=== PATIENT | female | born 1960 | race Caucasian/White ===

== ENCOUNTER → 2016-12-01 | Outpatient (CLI) | payer BC ==
--- NOTE | 2016-12-01 10:30 | Diagnostic Imaging Report ---
Bilateral screening mammogram The current study was also evaluated with a Computer Aided Detection (CAD) system. INDICATION: Screening. No current complaints stated on the questionnaire. COMPARISON: 12/01/15 FINDINGS: The breasts are composed of heterogeneously dense parenchyma which may decrease mammographic sensitivity. There is no mass, architectural distortion or suspicious cluster of calcification. Allowing for technique and positional differences, no suspicious change is seen. IMPRESSION: No significant change. ACR BI-RADS Category 2: Benign findings. Result letter will be mailed to the patient. Note: At least 10% of breast cancer is not imaged by mammography. Dictated by: Dictated on workstation # [id number]
== END ==
LOC: RAD 07:17
PROVIDERS: ATTEND Nurse Practitioner Family
DX: Z12.31 Encounter for screening mammogram for malignant neoplasm of breast (principal)
CPT/HCPCS: 77067

== ENCOUNTER → 2017-03-28 | Outpatient (CLI) | payer BC ==
--- NOTE | 2017-03-29 11:13 | Diagnostic Imaging Report ---
PROCEDURE: MRI left upper extremity without contrast. TECHNIQUE: Multiplanar, multisequence non contrast-enhanced MRI of the left upper extremity was accomplished. INDICATION: Left shoulder adhesive capsulitis. FINDINGS: There is no os acromiale or Hill-Sachs deformity. 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 No inferior osteophytes. There is mild increased signal within the supraspinatus tendon anteriorly along the bursal side compatible with low-grade partial tear. Infraspinatus tendon appears intact. Minimal reactive fluid within the subacromial subdeltoid bursa is seen. The long head biceps tendon appears to be within its groove. The superior segment of the labrum demonstrates a nonspecific slight increased signal on coronal proton density sequence which is nonspecific on this study without intra-articular contrast. The subscapular tendon demonstrates mild increased signal likely related to tendinosis with no significant tear. There is mild reactive bone marrow signal in the posterior lateral aspect of the humeral head near the rotator cuff insertion. There is otherwise no significant bone marrow signal abnormality. The muscle bulk and signal around the shoulder is normal. IMPRESSION: 1. There is a mild bursal side partial tear along the anterior fibers of the supraspinatus tendon. No high-grade or retracted tear. 2. Suggestion of subscapularis tendinosis. Dictated by: Dictated on workstation # [id number]
== END ==
LOC: RAD 16:18
PROVIDERS: ATTEND Orthopaedic Surgery
DX: M75.02 Adhesive capsulitis of left shoulder (principal)
CPT/HCPCS: 73221

== ENCOUNTER → 2017-12-02 | Outpatient (CLI) | payer BC ==
--- NOTE | 2017-12-02 13:27 | Diagnostic Imaging Report ---
INDICATION: Routine screening. Comparison is made with prior study from 12/01/2016 and 12/01/2015. 2-D and 3-D bilateral screening mammography was performed with CAD. The current study was also evaluated with a Computer Aided Detection (CAD) system. FINDINGS: Both breasts remain heterogeneously dense, limiting the sensitivity of mammography. Benign circumscribed nodule in the upper outer right breast is stable. No new mass or malignant-appearing microcalcifications are seen. The axillae are unremarkable. IMPRESSION: No mammographic features suspicious for malignancy are identified. ACR BI-RADS Category 2: Benign findings. Result letter will be mailed to the patient. Note: At least 10% of breast cancer is not imaged by mammography. Dictated by: Dictated on workstation # [id number]
== END ==
LOC: RAD 07:18
PROVIDERS: ATTEND Family Medicine
DX: Z12.31 Encounter for screening mammogram for malignant neoplasm of breast (principal)
CPT/HCPCS: 77067

== ENCOUNTER → 2019-12-06 | Outpatient (CLI) | payer BC ==
--- NOTE | 2019-12-06 11:33 | Diagnostic Imaging Report ---
EXAM: Digital mammogram bilateral screening, COMPARISONS: 12/04/2018, 12/02/2017 and 12/01/2016. TECHNIQUE: The current study was also evaluated with a Computer Aided Detection (CAD) system. There are no current complaints. FINDINGS: The fibroglandular tissue in both breasts is heterogeneously dense. This does limit the sensitivity of this exam. Overall, there does not appear to have been any significant change when compared to the prior study. No primary or secondary sign of malignancy is noted. IMPRESSION: There is no radiographic evidence for malignancy. ACR BI-RADS Category 1: Negative. Result letter will be mailed to the patient. Note: At least 10% of breast cancer is not imaged by mammography. Dictated by: Dictated on workstation # [id number]
== END ==
LOC: RAD 07:24
PROVIDERS: ATTEND Family Medicine
DX: Z12.31 Encounter for screening mammogram for malignant neoplasm of breast (principal)
CPT/HCPCS: 77063; 77067

== ENCOUNTER → 2020-12-08 | Outpatient (CLI) | payer BC ==
--- NOTE | 2020-11-26 06:59 | HISTORY AND PHYSICAL ---
DATE OF SERVICE: COLONOSCOPY HISTORY AND PHYSICAL HISTORY OF PRESENT ILLNESS: The patient is a 59-year-old white female referred by Dr. Irwin for screening colonoscopy. She reports one of the screening colon 10 years ago that she believes was unremarkable. She denies bowel habit change, bright red blood per rectum, melena or abdominal pain. She is not aware of any family history for colon cancer. PAST MEDICAL HISTORY: Pretty unremarkable. She has a history of adhesive capsulitis of the left shoulder causing only minimal discomfort at this time. No history of cardiovascular disease or pulmonary disease. PAST SURGICAL HISTORY: She had D and C following a miscarriage around 25 years ago. Reports no other surgeries. FAMILY HISTORY: Father of lung cancer in his 60s, was a heavy smoker. Mother succumbed of vulvar cancer. I believe she was a smoker as well. No known family history for colon cancer or other GI tract malignancies. 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 No past smoking history and only rare alcohol consumption in small volume. REVIEW OF SYSTEMS: CONSTITUTIONAL: The patient denies change in weight, night sweats, chills or fever. CARDIOVASCULAR: The patient denies chest pain, orthopnea, PND, pedal edema, syncope, presyncope, palpitations or heart racing. PULMONARY: The patient denies cough, wheezing or shortness of breath. GASTROINTESTINAL: As per HPI. PHYSICAL EXAMINATION: GENERAL: Reveals a pleasant white female in no acute distress. VITAL SIGNS: Weight 152 pounds, blood pressure 140/90. HEENT: Unremarkable. CHEST: Clear. CARDIOVASCULAR: Reveals a regular rate and rhythm without murmur, S3 or S4. ABDOMEN: Soft, supple without mass, organomegaly or tenderness. No bruits are noted. Bowel sounds are positive. EXTREMITIES: Reveal no cyanosis, clubbing or edema. ASSESSMENT AND PLAN: The patient is set up for screening colonoscopy, deemed to be of average risk with no known family history for colon cancer. Prep instructions with the Suprep kit were given and questions were answered. Electronic medical record was reviewed. I thank you for the referral of this pleasant lady. Job ID: [id number] DocumentID: [id number] Dictated Date: 11/20/2020 16:31:28 Water Plant Pump Operator Supervisor Date: 11/20/2020 17:39:37 Dictated By: RITU LOPEZ MD
[~2020-12-08] MED LIST: ATOR10TA PO; OMEG-33 PO; SPIR25TA PO; UBID10CA5 PO
--- NOTE | 2020-12-08 10:20 | Diagnostic Imaging Report ---
INDICATION: Routine screening. COMPARISON: 12/06/2019 and 12/04/2018. TECHNIQUE: 2D and 3D bilateral screening mammography was performed with CAD. FINDINGS: Scattered fibroglandular densities are identified bilaterally. An intraparenchymal lymph node in the upper outer right breast is stable. No new mass or malignant appearing microcalcifications are seen. The axillae are unremarkable. IMPRESSION: No mammographic features suspicious for malignancy are identified. ACR BI-RADS Category 2: Benign findings. Result letter will be mailed to the patient. Note: At least 10% of breast cancer is not imaged by mammography. Dictated by: Dictated on workstation # [id number]
== END ==
LOC: RAD 07:30
PROVIDERS: ATTEND Family Medicine
DX: Z12.31 Encounter for screening mammogram for malignant neoplasm of breast (principal)
CPT/HCPCS: 77063; 77067

== ENCOUNTER 2020-12-11 06:41 | Outpatient (CLI) | payer BC ==
[~2020-12-11] VITALS: Ht 157.5 cm; Wt 67.0 kg
[2020-12-11] MEDS ORDERED: UBID10CA5 PO (12:24)
[2020-12-11] MEDS ORDERED: ATOR10TA PO (12:24)
[2020-12-11] MEDS ORDERED: SPIR25TA PO (12:24)
[2020-12-11] MEDS ORDERED: OMEG-33 PO (12:24)
== END 2020-12-11 13:52 | disposition home or self-care (01) ==
LOC: PREOP 06:41
PROVIDERS: ATTEND Internal Medicine
DX: Z01.818 Encounter for other preprocedural examination (principal)

== ENCOUNTER 2020-12-19 07:03 | Day surgery (SDC) | payer BC ==
[~2020-12-19] VITALS: Ht 157.5 cm; Wt 67.0 kg
[2020-12-19] MEDS ORDERED: LACTATED RINGERS 1,000 ML IV ONE (07:08)
[2020-12-19] MEDS ORDERED: LACTATED RINGERS 1,000 ML IV STA (07:11)
[2020-12-19 07:15] VITALS: BP 120/72
[2020-12-19] MEDS ORDERED: LIDOCAINE JELLY 2% 6 ML SYRINGE MM PRN (07:15)
[2020-12-19] MEDS ORDERED: PROPOFOL INJECTION 50 ML IV ONE (07:33)
[2020-12-19] MEDS ORDERED: MIDAZOLAM 2 MG/2 ML (VERSED) VIAL ONE (07:34)
[2020-12-19] MEDS ORDERED: LIDOCAINE PF 2% 5 ML (XYLOCAINE) VIAL ONE (08:01)
--- NOTE | 2020-12-19 08:01 | Pre-Op Note & Conscious Sedat ---
Pre-Operative Progress Note H&P Reviewed The H&P was reviewed, patient examined and no changes noted. Date H&P Reviewed: Dec 19, 2020 Time H&P Reviewed: 07:40 Conscious Sedation Pre-Proced ASA Score 2 For ASA 3 and 4: Consider anesthesia and medical clearance. Also, for patients with a history of failed moderate sedation consider anesthesia. Airway Lungs Heart ASA score ASA 1: a normal healthy patient ASA 2: a patient with a mild systemic disease (mid diabetes, controlled hypertension, obesity ASA 3: a patient with a severe systemic disease that limits activity (angina, COPD, prior Myocardial infarction) ASA 4: a patient with an incapacitating disease that is a constant threat to life (CHF, renal failure) ASA 5: a moribund patient not expected to survive 24 hrs. (ruptured aneurysm) ASA 6: a declared brain- patient whose organs are being harvested. For emergent operations, add the letter E after the classification Mallampati Classification Grade 2 Sedation Plan Analgesia, Amnesia, Plan communicated to team members, Discussed options with patient/fam, Discussed risks with patient/fam The patient is an appropriate candidate to undergo the planned procedure, sedation, and anesthesia. The patient immediately re-assessed prior to indication. RITU LOPEZ MD Dec 19, 2020 08:01
[2020-12-19 08:30] VITALS: BP 122/62
[2020-12-19 08:35] VITALS: BP 107/58
[2020-12-19 08:55] VITALS: BP 108/71
[2020-12-19 09:10] VITALS: BP 108/71
--- NOTE | 2020-12-19 11:04 | Anesthesia-General Post-Op ---
MAC Patient Condition Mental Status/LOC: Same as Preop Cardiovascular: Satisfactory Nausea/Vomiting: Absent Respiratory: Satisfactory Pain: Controlled Complications: Absent Post Op Complications Complications None Follow Up Care/Instructions Patient Instructions None needed. Anesthesiology Discharge Order Discharge Order Patient is doing well, no complaints, stable vital signs, no apparent adverse anesthesia problems. No complications reported per nursing. YANNICK OJEDA CRNA Dec 19, 2020 11:04
--- NOTE | 2020-12-19 13:50 | OPERATIVE REPORT ---
DATE OF SERVICE: COLONOSCOPY SUMMARY INDICATION FOR PROCEDURE Screening. DESCRIPTION OF PROCEDURE: The patient was placed in the left lateral decubitus position. Prior to undergoing colonoscopy, digital rectal evaluation was performed. Anal sphincter tone was normal. Perianal reflexes intact. No abnormalities were noted on digital inspection of anal canal or distal rectal vault. The colonoscope was inserted in the rectum and under direct visualization advanced to cecum. The cecum was identified by identification of ileocecal valve and cecal strap. Photographic documentation was obtained. Careful inspection was made as colonoscope was withdrawn. Quality of prep was good. FINDINGS: No evidence for internal or external hemorrhoids. The rectum was unremarkable. Present in the distal sigmoid colon was a diminutive 2 mm sessile polyp was biopsied and ablated and submitted for histopathology. A similar small to 3 mm polyps were noted in the mid ascending and the hepatic flexure. Both were biopsied and ablated with no subsequent blood loss. The remainder of the colon was unremarkable. No evidence for diverticular disease was noted. ASSESSMENT: Three small sessile polyps were removed via hot forceps located in the distal sigmoid colon, hepatic flexure and mid ascending colon. This was an otherwise normal colonoscopy to the cecum under good prep conditions. We will await histopathology report before making recommendation for future surveillance colonoscopy. I thank you for the referral of this pleasant lady. Job ID: [id number] DocumentID: [id number] Dictated Date: 12/19/2020 09:07:01 Supervisor Dry Cleaning Date: 12/19/2020 13:49:29 Dictated By: RITU LOPEZ MD
--- NOTE | 2020-12-23 09:16 | HISTORY AND PHYSICAL ---
DATE OF SERVICE: 12/19/2020 COLONOSCOPY HISTORY AND PHYSICAL HISTORY OF PRESENT ILLNESS: The patient is a 59-year-old white female referred by Dr. Irwin for screening colonoscopy. She reports one of the screening colon 10 years ago that she believes was unremarkable. She denies bowel habit change, bright red blood per rectum, melena or abdominal pain. She is not aware of any family history for colon cancer. PAST MEDICAL HISTORY: Pretty unremarkable. She has a history of adhesive capsulitis of the left shoulder causing only minimal discomfort at this time. No history of cardiovascular disease or pulmonary disease. PAST SURGICAL HISTORY: She had D and C following a miscarriage around 25 years ago. Reports no other surgeries. FAMILY HISTORY: Father of lung cancer in his 60s, was a heavy smoker. Mother succumbed of vulvar cancer. I believe she was a smoker as well. No known family history for colon cancer or other GI tract malignancies. 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 No past smoking history and only rare alcohol consumption in small volume. REVIEW OF SYSTEMS: CONSTITUTIONAL: The patient denies change in weight, night sweats, chills or fever. CARDIOVASCULAR: The patient denies chest pain, orthopnea, PND, pedal edema, syncope, presyncope, palpitations or heart racing. PULMONARY: The patient denies cough, wheezing or shortness of breath. GASTROINTESTINAL: As per HPI. PHYSICAL EXAMINATION: GENERAL: Reveals a pleasant white female in no acute distress. VITAL SIGNS: Weight 152 pounds, blood pressure 140/90. HEENT: Unremarkable. CHEST: Clear. CARDIOVASCULAR: Reveals a regular rate and rhythm without murmur, S3 or S4. ABDOMEN: Soft, supple without mass, organomegaly or tenderness. No bruits are noted. Bowel sounds are positive. EXTREMITIES: Reveal no cyanosis, clubbing or edema. ASSESSMENT AND PLAN: The patient is set up for screening colonoscopy, deemed to be of average risk with no known family history for colon cancer. Prep instructions with the Suprep kit were given and questions were answered. Electronic medical record was reviewed. I thank you for the referral of this pleasant lady. Job ID: [id number] DocumentID: [id number] Dictated Date: 11/20/2020 16:31:28 Foreign Student Adviser Date: 11/20/2020 17:39:37 Dictated By: RITU LOPEZ MD <Dictated by RITU LOPEZ MD> <Electronically signed by RITU LOPEZ MD> 11/28/20 1122 [facility]
== END 2020-12-19 09:10 | disposition home or self-care (01) ==
LOC: ENDO 07:03
PROVIDERS: ATTEND Internal Medicine
DX: Z12.11 Encounter for screening for malignant neoplasm of colon (principal); D12.2 Benign neoplasm of ascending colon; D12.5 Benign neoplasm of sigmoid colon; D12.3 Benign neoplasm of transverse colon; K63.89 Other specified diseases of intestine; Z79.899 Other long term (current) drug therapy

== ENCOUNTER → 2021-12-15 | Outpatient (CLI) | payer BC ==
--- NOTE | 2021-12-15 10:01 | Diagnostic Imaging Report ---
INDICATION: Postmenopausal screening COMPARISON: None FINDINGS: AP Spine L1-L4: [BMD (g/cm2): 0.595] [T-Score: -5.0] [Z-Score: -3.8] [BMD Previous: na] [BMD % Change: na] LT Hip Neck: [BMD (g/cm2): 0.635] [T-Score: -2.9] [Z-Score: -1.7] LT Hip Total: [BMD (g/cm2):0.685] [T-Score:-2.6] [Z-Score: -1.6] [BMD Previous: na] [BMD % Change: na] RT Hip Neck: [BMD (g/cm2):0.617] [T-Score:-3.0] [Z-Score:-1.8] RT Hip Total: [BMD (g/cm2):0.691] [T-score:-2.5] [Z-Score:-1.6] [BMD Previous:na] [BMD % Change:na] *Indicates significant change from prior examination based on 95% confidence level. World Health Organization criteria for BMD interpretation classify patients as Normal (T-score at or above -1.0), Osteopenic (T-score between -1.0 and -2.5) or Osteoporotic (T-score at or below -2.5). LIMITATIONS AND MODIFICATION: None. FRACTURE RISK (FRAX SCORE): The ten year probability of (%): Major Osteoporotic Fracture: [na] Hip Fracture: [na] IMPRESSION: 1. Osteoporosis. 2. See below National Osteoporosis Foundation guidelines on when to potentially initiate pharmacologic therapy. Based on the National Osteoporosis Foundation Guidelines, pharmacologic treatment should be initiated in any of the following, unless clinical conditions suggest otherwise: * Any patient with prior fragility fracture of the hip or vertebrae. A spine fracture indicates 5X risk for subsequent spine fracture and 2X risk for subsequent hip fracture. * Osteoporosis (T-score <-2.5). * Postmenopausal women and men age 50 and older with low bone mass/osteopenia (T-score between -1.0 and -2.5) by DXA and 10-year major osteoporotic fracture greater than 20% or a 10-year probability of hip fracture greater than 3%. These fracture risks are supplied above in the FRAX score, if applicable. * Clinician judgement and/or patient preferences may indicate treatment for people with 10-year fracture probabilities above or below these levels. Dictated by: Dictated on workstation # [id number]
--- NOTE | 2021-12-15 12:55 | Diagnostic Imaging Report ---
INDICATION: Routine screening. COMPARISON: 12/08/2020 and 12/06/2019. TECHNIQUE: 2D and 3D bilateral screening mammography was performed with CAD. FINDINGS: Both breasts are heterogeneously dense, limiting the sensitivity of mammography. An intraparenchymal lymph node in the upper outer right breast is stable. No spiculated mass or malignant-appearing microcalcifications are seen. The axillae are unremarkable. IMPRESSION: No mammographic features suspicious for malignancy are identified. ACR BI-RADS Category 2: Benign findings. Result letter will be mailed to the patient. Note: At least 10% of breast cancer is not imaged by mammography. Dictated by: Dictated on workstation # [id number]
== END ==
LOC: RAD 08:15
PROVIDERS: ATTEND Family Medicine
DX: Z12.31 Encounter for screening mammogram for malignant neoplasm of breast (principal); Z13.820 Encounter for screening for osteoporosis; Z78.0 Asymptomatic menopausal state; M81.0 Age-related osteoporosis without current pathological fracture
CPT/HCPCS: 77063; 77067; 77080

== ENCOUNTER → 2022-12-16 | Outpatient (CLI) | payer BC ==
--- NOTE | 2022-12-16 10:12 | Diagnostic Imaging Report ---
INDICATION: Routine screening Comparison is made with prior mammogram from 12/15/2021 and 12/08/2020. 2-D and 3-D bilateral screening mammography was performed with CAD. Both breasts are heterogeneously dense, limiting the sensitivity of mammography. Benign-appearing nodular densities of both breasts appear stable. No dominant mass or malignant-appearing microcalcifications are seen. Axillae are unremarkable. IMPRESSION: No mammographic features suspicious for malignancy are identified. ACR BI-RADS Category 2: Benign findings. Result letter will be mailed to the patient. Note: At least 10% of breast cancer is not imaged by mammography. BI-RADS Category 2 Dictated by: Dictated on workstation # [id number]
== END ==
LOC: RAD 07:30
PROVIDERS: ATTEND Family Medicine
DX: Z12.31 Encounter for screening mammogram for malignant neoplasm of breast (principal)
CPT/HCPCS: 77063; 77067